=== PATIENT | female | born 1950 | race Caucasian/White ===

== ENCOUNTER 2023-03-11 13:30 | Emergency (ER) | payer MEDICARE, SELFPAY ==
[2023-03-11 13:33] VITALS: BP 160/101; PULSE 75; RESP 18; TEMP 35.8; O2SAT 98; BMI 34.1
--- NOTE | 2023-03-11 13:50 | RAD_ITS ---
STUDY: X-RAY - LEFT SHOULDER REASON FOR EXAM: Female, 72 years old. Dislocation TECHNIQUE: 2 view(s) of the shoulder. COMPARISON: None. FINDINGS: Anterior inferior dislocation of the glenohumeral joint. Normal acromioclavicular joint. Normal acromion. Normal humeral head and visualized proximal humerus. The soft tissue structures are unremarkable. Increased markings at the left lung base suggestive of atelectasis. RAD/Shoulder min 2 Views IMPRESSION: Anterior inferior dislocation of the glenohumeral joint. Electronically Signed: Trip Calvillo MD at 14:18 EDT ,
[2023-03-11] MEDS: Ondansetron 4 MG/2 ML Vial IV (14:11)
[2023-03-11] MEDS: Morphine 4 MG/ML Syringe IV ×2 (14:11→14:58)
--- NOTE | 2023-03-11 14:11 | EX.ED.DYSGE1 ---
HPI History of Present Illness Chief Complaint: Fall Informant: patient Narrative Narrative: 72-year-old female reports tripping over a rug and falling. She fell forward onto outstretched hands. She notes an abrasion to the right knee and significant pain and limited range of motion of the left shoulder. She has had prior right shoulder surgery (rotator cuff) in the past. She states that she is ambidextrous. She denies hitting her head or having any neck and back pain. Patient has been able to ambulate. She denies any changes sensation or injury to the elbow wrist hands. [facility] Medical History Hypothyroid Restless leg Home Medications cetirizine 10 mg tablet mg 03/11/23 [History Last Taken Unknown] cholecalciferol (vitamin D3) 1,250 mcg (50,000 unit) capsule 03/11/23 [History Last Taken Unknown] gabapentin 400 mg capsule mg 03/11/23 [History Last Taken Unknown] hydrocodone-acetaminophen 5-325mg 5mg-325mg 1 tab PO Q6H PRN PRN Pain 3 days #12 TABLETS 03/11/23 [Rx Last Taken Unknown] levothyroxine 25 mcg tablet mcg 03/11/23 [History Last Taken Unknown] pravastatin 20 mg tablet mg 03/11/23 [History Last Taken Unknown] ropinirole 0.5 mg tablet mg 03/11/23 [History Last Taken Unknown] Allergy/AdvReac Type Severity Reaction Status Date / Time No Known Allergies Allergy Verified 03/11/23 13:32 Social History Smoking Status: Never smoker ROS ROS ED Constitutional Constitutional ED: Denies chills or weight loss Eyes Eyes: Denies change in vision or diplopia ENT ENT ED: Denies ear pain, rhinorrhea or sore throat Cardiovascular Cardiovascular: Denies chest pain, orthopnea, palpitations or racing heartbeat Respiratory/Chest Respiratory/Chest: Denies cough, dyspnea or orthopnea Gastrointestinal Gastrointestinal: Denies abdominal pain, diarrhea, nausea or vomiting Genitourinary Genitourinary ED: Denies dysuria, hematuria or urinary frequency Musculoskeletal Musculoskeletal: Reports other Details: See history of present illness ; Denies arthralgias, back pain, myalgias or neck pain Integumentary Reports Abrasions; Denies abscess or rash Neurologic Neurologic: Denies headache(s) or weakness Psychiatric Psychiatric: Denies anxiety, depression, suicidal ideation or suicidal thoughts Endocrine Endocrinology: Denies polydipsia, polyphagia or polyuria Allergic/Immunologic Allergic/Immunologic ED: Denies mouth swelling, tongue swelling or urticaria EXAM Physical Exam Const Vital Signs: 03/11/23 13:33 03/11/23 13:51 03/11/23 14:25 Temperature 96.4 F L Temperature Source Temporal Pulse Rate 75 64 Pulse Rate [1 (Initial Baseline)] Pulse Rate [2] Pulse Rate [3] Respiratory Rate 18 15 Respiratory Rate [1 (Initial Baseline)] Respiratory Rate [2] Respiratory Rate [3] Respiratory Effort Normal Non-Labored Blood Pressure 160/101 H 130/59 H Blood Pressure [1 (Initial Baseline)] Blood Pressure [2] Blood Pressure [3] Blood Pressure Mean 120 Pulse Ox 98 96 Oxygen Delivery Method Room Air Room Air Oxygen Delivery Method [1 (Initial Baseline)] Oxygen Delivery Method [2] Oxygen Delivery Method [3] Oxygen Flow Rate (L/min) [1 (Initial Baseline)] Oxygen Flow Rate (L/min) [2] 03/11/23 14:30 03/11/23 14:45 03/11/23 14:50 Temperature Temperature Source Pulse Rate Pulse Rate [1 (Initial Baseline)] 72 Pulse Rate [2] 84 Pulse Rate [3] 76 Respiratory Rate Respiratory Rate [1 (Initial Baseline)] 20 H Respiratory Rate [2] 18 Respiratory Rate [3] 20 H Respiratory Effort Blood Pressure Blood Pressure [1 (Initial Baseline)] 127/66 H Blood Pressure [2] 114/73 Blood Pressure [3] 118/72 Blood Pressure Mean Pulse Ox Oxygen Delivery Method Room Air Room Air Oxygen Delivery Method [1 (Initial Baseline)] Nasal Cannula Oxygen Delivery Method [2] Nasal Cannula Oxygen Delivery Method [3] Room Air Oxygen Flow Rate (L/min) [1 (Initial Baseline)] 2 Oxygen Flow Rate (L/min) [2] 2 03/11/23 14:55 Temperature Temperature Source Pulse Rate Pulse Rate [1 (Initial Baseline)] Pulse Rate [2] Pulse Rate [3] Respiratory Rate Respiratory Rate [1 (Initial Baseline)] Respiratory Rate [2] Respiratory Rate [3] Respiratory Effort Blood Pressure Blood Pressure [1 (Initial Baseline)] Blood Pressure [2] Blood Pressure [3] Blood Pressure Mean Pulse Ox Oxygen Delivery Method Room Air Oxygen Delivery Method [1 (Initial Baseline)] Oxygen Delivery Method [2] Oxygen Delivery Method [3] Oxygen Flow Rate (L/min) [1 (Initial Baseline)] Oxygen Flow Rate (L/min) [2] Positive well nourished, well developed and obese General Appearance ED: well developed Nutritional Appearance: obese HEENT Reports normocephalic, head/scalp atraumatic and moist mucous membranes Eyes PERRL and EOMs intact bilaterally Neck no lymphadenopathy, supple and no JVD Resp normal respiratory effort and clear to auscultation bilaterally Cardio regular rate, regular rhythm and no murmurs GI normal to inspection, nondistended, normoactive bowel sounds and non-tender Palpation: soft Back/Spine no CVA tenderness and normal ROM Extremity Extremity Narrative: The left shoulder shows a anterior shoulder dislocation. There is limited range of motion. Tender to palpation. The left elbow forearm wrist and hand appear uninjured. Neurovascularly is intact. General Extremety ED: Negative for edema General Extremity: Negative for edema Neuro oriented x3 and CN's II-XII intact bilaterally Sensorium / Orientation: alert Motor Exam: strength 5/5 throughout Psych mental status grossly normal Mood & Affect: Negative for depressed or tearful Skin no rashes or lesions noted Skin Narrative: There is a very superficial abrasion to the right knee. No deformity or effusion noted. MDM MDM MDM Narrative Medical decision making narrative: My interpretation of the initial 2 view shoulder x-ray is anterior inferior shoulder dislocation. Patient provided informed consent for the use of propofol for procedural sedation. IV was obtained and the patient was given morphine and Zofran for pain/nausea control. Patient was placed on the monitor and appropriate procedural sedation precautions in place. Initial aliquot of 0.5 mg/kg bolus of propofol was given followed by 0.25 mg/kg bolus of propofol to achieve adequate sedation and maintain sedation throughout the procedure. Using the standard Milch technique and virtually no traction the shoulder was easily reduced. She was placed in a sling with swath. My interpretation of the postreduction x-rays is satisfactory reduction. Patient received a additional dose of morphine as her restless leg symptoms were worsening her pain. Patient has seen Dr. Alexander in the past for her right shoulder. I discussed home care with her and will refer her to Dr. Alexander for this left shoulder dislocation. I can write for some additional pain medication at home. She understands that this is a significant alteration to her daily routine and will require assistance at home and she will rely on family/friends. Radiography Diagnostic Testing: Clinical Impression(s) from Imaging Studies Shoulder X-Ray 03/11/23 13:50 IMPRESSION: Anterior inferior dislocation of the glenohumeral joint. Electronically Signed: Trip Calvillo MD at 14:18 EDT , Shoulder X-Ray 03/11/23 14:35 IMPRESSION: Post reduction demonstrates normal alignment. Electronically Signed: Trip Calvillo MD at 14:48 EDT , Procedures Procedural Sedation 1 (Initial Baseline): Consent Signed: Yes Any Problems With Anesthesia: No You/Your family experience fever (hyperthermia) w/anesthesia: No Sedation medication: Propofol Maliampati Score: Class II ASA Classification: II Discharge Plan Triage Chief Complaint: Fall Other Complaint: Disclocation Upper Extremity Injury ED Provider: Rubio Linder Dx/Rx/DC Orders Clinical Impression: Anterior dislocation of left shoulder, Fall, Abrasion of knee, right Instructions: ED Dislocation: Shoulder (Reduced) Prescriptions: New hydrocodone-acetaminophen [hydrocodone-acetaminophen] 5-325 mg tablet 1 tab PO Q6H PRN PRN (Reason: Pain) 3 Days Qty: 12 0RF No Action cetirizine 10 mg tablet Patient Comments: TAKE 1 TABLET BY MOUTH once DAILY gabapentin 400 mg capsule Patient Comments: Take 1 capsule by mouth three times daily for 180 days. levothyroxine 25 mcg tablet Patient Comments: Take 1 tablet by mouth once daily. Take on empty stomach. For thyroid. ropinirole 0.5 mg tablet Patient Comments: TAKE 1 TABLET BY MOUTH THREE TIMES DAILY pravastatin 20 mg tablet Patient Comments: Take 1 tablet by mouth once daily. cholecalciferol (vitamin D3) 1,250 mcg (50,000 unit) capsule Patient Comments: Take 1 capsule by mouth one time a week. To follow initial month with loading Primary Care Provider: Adrian Schrader Referrals: Saleem Alexander DO [Med Staff - Active Staff] - As soon as possible Adrian Schrader MD [Primary Care Provider] - Disposition Disposition: Home, Self Care
[2023-03-11 14:25] VITALS: BP 130/59; PULSE 64; RESP 15; O2SAT 96
[2023-03-11 14:30] VITALS: BP 114/73; BP 118/72; BP 127/66; PULSE 72; PULSE 76; PULSE 84; RESP 18; RESP 20; O2SAT 95; O2SAT 96; O2SAT 97
--- NOTE | 2023-03-11 14:35 | RAD_ITS ---
STUDY: X-RAY - LEFT SHOULDER REASON FOR EXAM: Female, 72 years old. Dislocation TECHNIQUE: 2 view(s) of the shoulder. COMPARISON: Comparison is made with prior study done earlier today. FINDINGS: Post reduction examination. Good alignment. RAD/Shoulder min 2 Views IMPRESSION: Post reduction demonstrates normal alignment. Electronically Signed: Trip Calvillo MD at 14:48 EDT ,
[2023-03-11 14:45] VITALS: BP 104/68; O2SAT 95
[2023-03-11] MEDS: Propofol 200 MG/20 ML Vial IV BOLUS (14:48)
[2023-03-11 14:50] VITALS: BP 129/88; O2SAT 94
[2023-03-11 14:55] VITALS: BP 134/107; O2SAT 97
== END 2023-03-11 15:52 | disposition home or self-care (01) ==
PROVIDERS: Emergency Provider Emergency Medicine; PCP Family Medicine; Visit Provider Emergency Medicine
DX: S43.015A Anterior dislocation of left humerus, initial encounter (principal); S80.211A Abrasion, right knee, initial encounter; W01.0XXA Fall on same level from slipping, tripping and stumbling without subsequent striking against object, initial encounter; G25.81 Restless legs syndrome; E03.9 Hypothyroidism, unspecified; Z79.899 Other long term (current) drug therapy
CPT/HCPCS: 23650; 73030; 96374; 96375; 96376; 99152; 99284; J7030; A4216; J2405